=== PATIENT | male | born 1965 | race Caucasian/White ===

== ENCOUNTER 2017-10-24 12:01 | Emergency (ER) | payer MEDICAID ==
[~2017-10-24] VITALS: Wt 75.7 kg
[2017-10-24] MEDS ORDERED: IBUPROFEN 800 MG TAB PO ONE (13:00)
--- NOTE | 2017-10-24 13:13 | RADRPT ---
PROCEDURE: XR Knee. CLINICAL INDICATION: Left knee pain TECHNIQUE: 3 images of the left knee are available for review. COMPARISON: None available FINDINGS: There is no acute fracture. Alignment is normal. Joint spaces are preserved. There is mild prepatellar soft tissue swelling. IMPRESSION: 1. No radiographic evidence of acute osseous abnormality. 2. Mild prepatellar soft tissue swelling. RPTAT: UU .Tj Hammer MD, MD Date Time Electronically viewed and signed by .Tj Hammer MD, MD on 10/24/2017 13:12 .K/
[2017-10-24] MEDS ORDERED: NAPR-688 PO (13:35)
[2017-10-24] MEDS ORDERED: HYDR-906 PO (13:35)
--- NOTE | 2017-10-24 13:40 | ERD ---
ER Documentation Chief Complaint Chief Complaint LEFT KNEE PAIN [id number] FELL HPI 52-year-old male presents for continued knee pain from a fall he suffered 3 weeks ago. He fell forward and struck his knee on the ground. He had pain at the time. He has been ambulatory but has increasing pain. The pain is worst with load bearing when he tries to go downstairs. He had no other injuries at the time does not have pain in any other part of his body. He has not tried taking anything to relieve the pain. ROS All systems reviewed and are negative except as per history of present illness. Medications Home Meds Active Scripts Hydrocodone/Acetaminophen ([place] 5-325 Tablet) 1 Each Tablet, 1 EACH PO Q6 for SEVERE PAIN LEVEL 7-10, #14 TAB Prov:ERWIN RIVERA DO 10/24/17 Naproxen* (Naproxen*) 500 Mg Tablet, 500 MG PO BID Y for PAIN, #20 TAB 1 Refill Prov:ERWIN RIVERA DO 10/24/17 Allergies Allergies: Coded Allergies: No Known Allergy (Unverified , 10/24/17) PMhx/Soc Medical and Surgical Hx: pt denies Medical Hx, pt denies Surgical Hx Hx Alcohol Use: No Hx Substance Use: No Hx Tobacco Use: No Smoking Status: Never smoker Physical Exam Vitals Vital Signs Date Time Temp Pulse Resp B/P Pulse Ox O2 Delivery O2 Flow Rate FiO2 10/24/17 12:03 98.3 87 20 179/80 96 Physical Exam Const: [] No distress Head: Atraumatic Eyes: Normal Conjunctiva Ext: No cyanosis, or edema. Right knee with no specific area of tenderness although when I have him load bearing he does have knee pain. Do not appreciate any ligamentous laxity. No deformities. Distal pulses intact all 4 extremities Neur: Awake and alert Psych: Normal Mood and Affect Results 24 hrs Current Medications Medications (Trade) Dose Ordered Sig/Diony Route PRN Reason Start Time Stop Time Status Last Admin Dose Admin Ibuprofen (Motrin) 800 mg ONCE ONCE PO 10/24/17 13:00 10/24/17 13:01 DC 10/24/17 12:52 Procedures/MDM Likely soft tissue injury or any ligamentous injury to the left knee status post trauma. Patient is ambulatory. He declines crutches. He was given 800 mg ibuprofen in the emergency room which did help his pain. X-ray does not show any bony abnormality but showed mild soft tissue swelling. Given the patient a knee immobilizer for that he can use it at night and whenever possible to help the knee he will. He does not have insurance and I spoke with patient care who did give him resources for sending for [employer] explained to him how to do so. Instructed him to call insurance company as soon as he receives a card in order to obtain orthopedic referral. I told him return to emergency room if he has any worsening of the knee pain or function immediately. Prescription for naproxen and [place]. X-ray interpretation, left knee: I see no acute fracture dislocation. No soft tissue abnormalities for mild soft tissue swelling. Departure Diagnosis: Primary Impression: Injury of left knee Condition: Stable Patient Instructions: Knee Sprain: Collateral Ligaments Additional Instructions: Llame al doctor MAANA y lani lisseth REMI PARA DENTRO DE 2-3 JOHNS or cuando puede.D gale a la secretaria que nosotros le instruimos hacer esta remi. CONSIGUE UN REFERRAL PARA UN ORHTOPEDIST. Avise o llame si astudillo condicin se empeora antes de la remi. Regresa aqui si peor o no mejor. ERWIN RIVERA DO Oct 24, 2017 13:40
== END 2017-10-24 14:05 | disposition home or self-care (01) ==
LOC: FTE 12:01
DX: S89.92XA Unspecified injury of left lower leg, initial encounter (principal); W18.39XA Other fall on same level, initial encounter; Y92.9 Unspecified place or not applicable
CPT/HCPCS: 29505; 73562; Z7502; Z7610